=== PATIENT | female | born 1940 | race Caucasian/White ===

== ENCOUNTER → 2017-09-11 | Outpatient (CLI) | payer MEDICARE ==
[~2017-09-11] MED LIST: ASA81EC PO; ASPIRIN81 M3; CALCIUM; LOPRESSOR25 MG PO; PLAVIX75 MG PO; PRINIVIL10 MG PO; VIT D; Z.0.OMEPRAZOLE20 M1 PO; Z.0.PRAVASTATIN SOD4 PO; Z.0.SERTRALINE HCL50 PO; ZOCOR40 MG PO
--- NOTE | 2017-09-11 10:28 | Diagnostic Imaging Report ---
PROCEDURE: CT CHEST WITHOUT CONTRAST CT scan of the chest WITHOUT intravenous contrast, using standard protocol. TECHNIQUE: The chest was scanned utilizing a multidetector helical scanner from the apex to the level of the adrenal glands. No IV contrast was administered because of referring physician request. Coronal and sagittal multiplanar reformations were obtained. COMPARISON: None. INDICATIONS: NODLUE FINDINGS: Lines/tubes: None. Lungs and Airways: 4 mm right lower lobe juxtapleural nodule unchanged, series 3 image 93. 3 and 4 mm right lower lobe and left lower lobe juxtapleural nodules, unchanged, series 3, image 97. 2 mm left upper lobe juxtapleural nodule is not identified on the current study which may relate to slice selection. Otherwise stable biapical pleural-parenchymal scar. Mild upper lobe predominant centrilobular emphysematous changes. Reticular and groundglass opacities in the dependent lower lobes compatible with scar or subsegmental atelectasis, improved relative to 10/10/2016. No new consolidation or bronchiectasis. 4 mm groundglass nodule laterally within the left lower lobe seen on series 3 image 92 was not clearly identified on the comparison study.. Pleura: No pleural effusion or pneumothorax. Heart and mediastinum: Visualized portions of the thyroid gland are unremarkable. Atherosclerotic calcification of the coronary arteries, thoracic aorta, and great vessel origins. No ectasia or aneurysmal dilatation of the thoracic aorta. Pulmonary outflow tract is of normal caliber. No pericardial effusion. Soft tissues: No focal soft tissue abnormalities. Abdomen: Unchanged cystic lesion in the upper pole of the left kidney. Visualized portions of the liver, spleen, pancreas, and adrenal glands otherwise unremarkable. Bones: No osseous destructive lesion. Healed fracture deformities of the lateral left fifth and seventh ribs. IMPRESSION: Stable bilateral subcentimeter pulmonary nodules measuring up to 4 mm, likely post infectious or inflammatory. An additional followup CT scan of the chest in one year is suggested to document stability, given the presence of a 4 mm left lower lobe nodule which was not clearly present on the study from September 2016. Atherosclerotic vascular disease. Mild upper lobe predominant emphysematous changes and biapical pleural-parenchymal scar, not significantly changed relative to the comparison examination. Dictated by: Donis Rubio M.D. on 09/11/2017 at 10:36 Electronically approved by: Donis Rubio M.D. on 09/11/2017 at 10:36
== END ==
LOC: CT 09:45
PROVIDERS: ATTEND Internal Medicine
DX: R94.8 Abnormal results of function studies of other organs and systems (principal)
CPT/HCPCS: 71250

== ENCOUNTER 2018-11-19 09:00 | Outpatient (RCR) | payer MEDICARE ==
[~2018-11-19 09:00] MED LIST changes: +ASPIRIN325 MG PO
== END 2018-11-21 ==
LOC: PT 09:00
PROVIDERS: ATTEND Specialist
DX: S82.002A Unspecified fracture of left patella, initial encounter for closed fracture (principal); M25.562 Pain in left knee; M25.662 Stiffness of left knee, not elsewhere classified; M62.81 Muscle weakness (generalized)

== ENCOUNTER 2018-11-23 08:59 | Outpatient (RCR) | payer MEDICARE | END 2018-12-21 | LOC: PT 08:59 | PROVIDERS: ATTEND Specialist | DX: S82.002A Unspecified fracture of left patella, initial encounter for closed fracture (principal); M25.562 Pain in left knee; M25.662 Stiffness of left knee, not elsewhere classified; M62.81 Muscle weakness (generalized) | CPT/HCPCS: 97139 ==

== ENCOUNTER 2018-12-25 14:54 | Emergency (ER) | payer MEDICARE ==
[~2018-12-25] VITALS: Ht 170.2 cm; Wt 58.1 kg
[2018-12-25] MEDS ORDERED: TETANUS/DIPHTHERIA TOX ADULT 0.5 ML SYR IM ONE (15:15)
[2018-12-25 15:22] VITALS: BP 184/90
== END 2018-12-25 15:25 | disposition home or self-care (01) ==
LOC: ER 14:54
DX: S61.211A Laceration without foreign body of left index finger without damage to nail, initial encounter (principal); W45.8XXA Other foreign body or object entering through skin, initial encounter; Y92.008 Other place in unspecified non-institutional (private) residence as the place of occurrence of the external cause; I10 Essential (primary) hypertension; Z95.5 Presence of coronary angioplasty implant and graft
CPT/HCPCS: 90471; 90714; 99281

== ENCOUNTER → 2019-10-18 | Outpatient (CLI) | payer MEDICARE | LOC: RAD 14:46 | PROVIDERS: ATTEND Family Medicine | DX: I25.10 Atherosclerotic heart disease of native coronary artery without angina pectoris (principal) | CPT/HCPCS: 93306 ==

== ENCOUNTER 2021-06-18 10:55 | Observation (INO) | payer MEDICARE ==
[2021-06-13 11:09] LABS: BASOPHILS # (AUTO) 0.1 (0.0-0.1); BASOPHILS % 0.8 % (0.0-1.0); EOSINOPHILS # (AUTO) 0.2 (0.0-0.4); EOSINOPHILS % 2.4 % (0.0-6.0); HEMOGLOBIN 15.2 g/dL (12.0-16.0); LYMPHOCYTES # (AUTO) 1.4 (1.0-3.2); MEAN CORPUSCULAR HEMOGLOBIN 31.6 pg (28-32); MEAN CORPUSCULAR HGB CONC 32.3 g/dL (31-35); MEAN CORPUSCULAR VOLUME 97.7 fL (81-99); MONOCYTES # (AUTO) 0.7 (0.2-0.8); MONOCYTES % 11.5 % (4.4-11.3); NEUTROPHILS # (AUTO) 3.9 (2.1-6.9); NEUTROPHILS % 62.8 % (38.7-80.0); PLATELET COUNT 165 x10e3/uL (140-360); RED BLOOD COUNT 4.81 x10e6/uL (3.6-5.1)
[2021-06-13 11:23] LABS: ALBUMIN 3.6 g/dL (3.5-5.0); ALBUMIN/GLOBULIN RATIO 1.3 (0.8-2.0); ANION GAP 10.8 mmol/L (8-16); CALCIUM 9.1 mg/dL (8.4-10.2); CREATININE, SERUM 1.03 mg/dL (0.57-1.11); POTASSIUM 3.8 mmol/L (3.5-5.1)
[~2021-06-18] VITALS: Ht 170.2 cm; Wt 56.7 kg
[2021-06-18] VITALS (16 sets, daily range): BP systolic 104–198; BP diastolic 4–79
[~2021-06-18 10:55] MED LIST changes: +CARVEDILOL12.5 MG PO
[2021-06-18] MEDS ORDERED: ALPRAZOLAM 0.5 MG TAB ONE (11:13)
[2021-06-18] MEDS ORDERED: DIPHENHYDRAMINE HCL 25 MG CAP ONE (11:13)
[2021-06-18] MEDS ORDERED: MIDAZOLAM HCL 2 MG/2 ML VIAL ONE ×2 (11:31→12:28)
[2021-06-18] MEDS ORDERED: VERAPAMIL HCL 2.5 MG/ML 2 ML VIAL ONE (11:31)
[2021-06-18] MEDS ORDERED: FENTANYL CITRATE/PF 100MCG/2 ML INJ ONE (11:31)
[2021-06-18] MEDS ORDERED: LIDOCAINE HCL 2% LOCAL 20 ML VIAL ONE (11:32)
[2021-06-18] MEDS ORDERED: SODIUM CHLORIDE 0.9% 1000ML 1,000 ML ONE (11:33)
[2021-06-18] MEDS ORDERED: IOPAMIDOL 370 MG/ML 200 ML INFUS..BTL INJ ONE ×2 (11:33→13:02)
[2021-06-18] MEDS ORDERED: HEPARIN SOD/SOD CHLORIDE 2,000 ML ONE (11:33)
[2021-06-18] MEDS ORDERED: SODIUM CHLORIDE 0.9% 50ML 50 ML ONE (12:38)
[2021-06-18] MEDS ORDERED: BIVALRIUDIN 250 MG/VIAL VIAL IV ONE (12:38)
[2021-06-18] MEDS ORDERED: ASPIRIN 325 MG TAB ONE (12:59)
[2021-06-18] MEDS ORDERED: PRASUGREL 10 MG TAB ONE (12:59)
[2021-06-18] MEDS: SODIUM CHLORIDE 0.9% 1000ML 1,000 ML IV SCH (13:00)
[2021-06-18] MEDS ORDERED: ONDANSETRON HCL INJ 2MG/ML 2ML 2 MG/ML VIAL IV PRN (13:00)
[2021-06-18] MEDS ORDERED: ACETAMINOPHEN 325 MG TAB PO PRN (13:00)
[2021-06-18] MEDS ORDERED: Morphine 4mg Syringe 4 MG/ML INJ IV PRN (13:00)
[2021-06-18] MEDS ORDERED: HYDROCODONE/APAP 5MG-325MG TAB PO PRN (13:00)
[2021-06-18] MEDS: CARVEDILOL 12.5 MG TAB PO SCH (18:38)
[2021-06-18] MEDS ORDERED: PRAVASTATIN 20 MG TAB PO SCH (21:00)
[2021-06-18] MEDS ORDERED: ZOLPIDEM TARTRATE 5 MG TAB PO PRN (21:00)
[2021-06-19] MEDS: SODIUM CHLORIDE 0.9% 1000ML 1,000 ML IV SCH ×2 (04:45→08:05)
[2021-06-19 05:04] VITALS: BP 168/59
[2021-06-19 08:00] VITALS: BP 165/58
[2021-06-19] MEDS: CARVEDILOL 12.5 MG TAB PO SCH (08:05)
[2021-06-19] MEDS ORDERED: ASPIRIN 325 MG TAB PO SCH (09:00)
[2021-06-19] MEDS ORDERED: LISINOPRIL 10 MG TAB PO SCH (09:00)
[2021-06-19 10:42] VITALS: BP 165/58
[2021-06-19 12:00] VITALS: BP 147/58
[2021-06-19] MEDS ORDERED: CLOPIDOGREL75 MG PO (12:09)
[2021-06-19] MEDS ORDERED: ONDANSETRON HCL 4 MG ORAL DISINTEGRATING TAB PO PRN (12:45)
== END 2021-06-19 12:30 | disposition home or self-care (01) ==
LOC: CATH LAB 10:55 → IMCU 18:19
PROVIDERS: ADMIT Internal Medicine Interventional Cardiology; ATTEND Internal Medicine Interventional Cardiology
DX: I25.10 Atherosclerotic heart disease of native coronary artery without angina pectoris (principal); I73.9 Peripheral vascular disease, unspecified; Z01.812 Encounter for preprocedural laboratory examination; Z20.822 Contact with and (suspected) exposure to COVID-19
CPT/HCPCS: 93458; C9600; 36415; 76937; 80053; 85025; 92928; 93454; 99152; 99153; C1769; C1874; C1887; C1894; G0378; J0583; J2001; J2250; J3010; J7030; Q9967; U0002

== ENCOUNTER → 2022-02-16 | Emergency (ER) | payer MEDICARE ==
[~2022-02-16] VITALS: Ht 322.6 cm; Wt 56.7 kg
[~2022-02-16] MED LIST changes: +CLOPIDOGREL75 MG PO
[2022-02-16 11:20] LABS: BASOPHILS % 0.3 % (0.0-1.0); EOSINOPHILS # (AUTO) 0.1 (0.0-0.4); EOSINOPHILS % 0.8 % (0.0-6.0); HEMATOCRIT 43.7 % (34.2-44.1); HEMOGLOBIN 14.7 g/dL (12.0-16.0); LYMPHOCYTES # (AUTO) 0.6 (1.0-3.2); LYMPHOCYTES % 10.3 % (18.0-39.1); MEAN CORPUSCULAR HEMOGLOBIN 32.4 pg (28-32); MEAN CORPUSCULAR HGB CONC 33.6 g/dL (31-35); MEAN CORPUSCULAR VOLUME 96.3 fL (81-99); MONOCYTES # (AUTO) 0.5 (0.2-0.8); MONOCYTES % 8.1 % (4.4-11.3); NEUTROPHILS # (AUTO) 4.8 (2.1-6.9); NEUTROPHILS % 80.3 % (38.7-80.0); PLATELET COUNT 240 x10e3/uL (140-360); RED BLOOD COUNT 4.54 x10e6/uL (3.6-5.1); RED CELL DISTRIBUTION WIDTH 11.9 % (11.7-14.4)
[2022-02-16 11:36] LABS: INR 0.87; PROTHROMBIN TIME 12.6 seconds (11.9-14.5)
[2022-02-16 11:47] LABS: ALANINE AMINOTRANSFERASE 11 IU/L (0-55); ALBUMIN 3.3 g/dL (3.5-5.0); ALBUMIN/GLOBULIN RATIO 0.9 (0.8-2.0); ALKALINE PHOSPHATASE 64 IU/L (40-150); BLOOD UREA NITROGEN 15 mg/dL (7-26); BUN/CREATININE RATIO 16 (6-25); CALCIUM 9.6 mg/dL (8.4-10.2); CARBON DIOXIDE 23 mmol/L (22-29); CHLORIDE 101 mmol/L (98-107); CREATINE KINASE 32 IU/L (29-168); CREATININE, SERUM 0.94 mg/dL (0.57-1.11); GLUCOSE 131 mg/dL (74-118); MAGNESIUM 1.9 MG/DL (1.3-2.1); SODIUM 135 mmol/L (136-145)
== END | disposition home or self-care (01) ==
LOC: ER 11:00
DX: K60.2 Anal fissure, unspecified (principal); K59.09 Other constipation; E78.5 Hyperlipidemia, unspecified; I10 Essential (primary) hypertension; I25.10 Atherosclerotic heart disease of native coronary artery without angina pectoris; Z79.02 Long term (current) use of antithrombotics/antiplatelets; Z79.82 Long term (current) use of aspirin; Z79.899 Other long term (current) drug therapy; Z95.5 Presence of coronary angioplasty implant and graft
CPT/HCPCS: 36415; 80053; 82550; 82553; 83735; 84484; 85025; 85610; 85730; 99284; C9113